=== PATIENT | male | born 1940 | race Caucasian/White ===

== ENCOUNTER 2018-06-17 08:34 | Outpatient (CLI) | payer BC ==
--- NOTE | 2018-06-17 10:29 | BD ---
DEXA BONE DENSITOMETRY: (Dual energy X-ray Absorptiometry) DATE: 06/17/2018. HISTORY: A 78-year-old white male with a history of secondary osteoporosis. Height 70 inches. Weight 160 pounds. FINDINGS: The bone mineral density (BMD) is given in grams per square centimeter (g/cm2): LUMBAR SPINE: BMD(g/cm2) T-score Z-score L1: 1.108 0.3 1.3 L2: 1.108 0.1 1.2 L3: 0.941 -1.5 -0.3 L4: 1.010 -0.7 0.4 Total: 1.040 -0.5 0.6 HIP: Femoral neck: 0.738 -1.4 0.0 Total: 0.835 -1.3 -0.4 IMPRESSION: 1) The mean bone mineral density of the lumbar spine is normal. Fracture risk is not increased. 2) The bone mineral density of the femoral neck is osteopenic. Fracture risk is increased. XIMENA Lovett POS: [facility]
== END 2018-06-17 08:35 | disposition home or self-care (01) ==
LOC: BICMAMMO 08:34
PROVIDERS: ATTEND Family Medicine
DX: Z13.820 Encounter for screening for osteoporosis (principal); M85.88 Other specified disorders of bone density and structure, other site
CPT/HCPCS: 77080

== ENCOUNTER 2019-08-15 13:09 | Outpatient (CLI) | payer BC ==
--- NOTE | 2019-08-15 15:47 | BD ---
DEXA BONE DENSITY STUDY: Date: 08/15/2019 HISTORY: Postmenopausal. FINDINGS: Lumbar Spine: BMD (g/cm2) L1 1.104 T-Score: +0.3 L2 1.069 T-Score: -0.2 L3 0.832 T-Score: -1.6 L4 1.012 T-Score: -0.7 Total 1.027 T-Score: -0.6 Left Femoral Neck: 0.719 T-Score: -1.5 Total Femur: 0.772 T-Score: -1.7 IMPRESSION: 1. Osteopenia of the left femoral neck. 2. Normal bone mineral density of the lumbar spine. POS: [facility]
== END 2019-08-15 13:10 | disposition home or self-care (01) ==
LOC: BICMAMMO 13:09
PROVIDERS: ATTEND Family Medicine
DX: M81.0 Age-related osteoporosis without current pathological fracture (principal); M85.852 Other specified disorders of bone density and structure, left thigh
CPT/HCPCS: 77080

== ENCOUNTER 2022-12-26 05:43 | Observation (INO) | payer MEDICARE, BC ==
[2022-12-22 10:07] VITALS: BMI 21.5
[2022-12-26] MEDS ORDERED: Tranexamic Acid 1,000 MG/10 ML VIAL ONE (06:03)
[2022-12-26] MEDS ORDERED: Sodium Chloride 0.9% 100 ML ONE ×2 (06:03→06:48)
[2022-12-26] MEDS ORDERED: Vancomycin 1 GM/200 ML (FROZEN) BAG ONE (06:04)
[2022-12-26] MEDS ORDERED: Midazolam HCl 2 mg/2 ml Vial ONE (06:43)
[2022-12-26] MEDS ORDERED: fentaNYL 50 mcg/mL 1 mL Vial ONE (06:43)
[2022-12-26] MEDS ORDERED: Bupivacaine PF 0.5% 30 ML VIAL ONE ×2 (06:43→06:48)
[2022-12-26] MEDS ORDERED: CEFAZOLIN 2 GM VIAL ONE (06:48)
[2022-12-26] MEDS ORDERED: Fentanyl 250 MCG/5 ML VIAL ONE (07:08)
[2022-12-26] MEDS ORDERED: fentaNYL 50 mcg/mL 1 mL Vial SLOW IVP PRN ×2 (07:11→07:58)
[2022-12-26] MEDS ORDERED: Acetaminophen 325 MG TAB PO PRN (07:11)
[2022-12-26] MEDS ORDERED: diphenhydrAMINE 25 MG CAP PO PRN (07:11)
[2022-12-26] MEDS ORDERED: HYDROcodone/Acetaminophen 10/325 mg Tablet PO PRN ×4 (07:11→08:00)
[2022-12-26] MEDS ORDERED: Zolpidem Tartrate 5 MG TAB PO PRN ×2 (07:11→08:00)
[2022-12-26] MEDS ORDERED: Promethazine HCl 25 MG/ML VIAL IM PRN ×2 (07:11→08:00)
[2022-12-26] MEDS ORDERED: PROPOFOL 200 MG/20 ML VIAL ONE (07:25)
[2022-12-26] MEDS ORDERED: Lidocaine 1% PF 5 ML VIAL ONE (07:25)
[2022-12-26] MEDS ORDERED: Ondansetron PF 4 MG/2 ML Vial ONE (07:25)
[2022-12-26] MEDS ORDERED: Dexamethasone 20 MG/5 ML VIAL ONE (07:25)
[2022-12-26] MEDS ORDERED: ePHEDrine Sulfate 50 MG/10 ML VIAL ONE (07:25)
[2022-12-26] MEDS ORDERED: Bupivacaine HCl 0.5%/Epinephrine 1:200,000/PF 30 ml Vial ONE (07:25)
[2022-12-26] MEDS ORDERED: Glycopyrrolate 0.2 MG/ML 5 ML SYRINGE ONE (07:25)
[2022-12-26] MEDS ORDERED: PHENYLEPHRINE-NS 100 MCG/ML 10 ML SYRINGE ONE (07:25)
[2022-12-26] MEDS ORDERED: Ondansetron PF 4 MG/2 ML Vial IVP PRN (08:00)
[2022-12-26] MEDS ORDERED: traMADol HCl 50 MG TAB PO PRN ×2 (08:00)
[2022-12-26] MEDS ORDERED: Ropivacaine 0.2% 550 ML 550 ML NERVE BLCK SCH (08:00)
[2022-12-26] MEDS ORDERED: Aspirin 81 mg Enteric Coated Tablet PO SCH (09:00)
[2022-12-26] MEDS ORDERED: fentaNYL PF 100 MCG/2 ML SYRINGE ONE ×2 (09:10→09:32)
[2022-12-26] MEDS ORDERED: HYDROmorphone 0.5 MG/0.5 ML SYRINGE ONE ×3 (09:10→10:48)
[2022-12-26] MEDS: Ondansetron PF 4 MG/2 ML Vial IVP PRN ×2 (13:03→22:36)
[2022-12-26] MEDS: Ketorolac Tromethamine 30 MG/ML VIAL IVP SCH ×3 (13:04→23:54)
[2022-12-26] MEDS: Sodium Chloride 0.9% 1,000 ML IV SCH ×2 (14:29→17:25)
[2022-12-26] MEDS: Aspirin 81 mg Enteric Coated Tablet PO SCH ×2 (14:30→22:28)
[2022-12-26] MEDS: Amlodipine 5 MG TAB PO SCH (14:30)
[2022-12-26] MEDS: Methylcellulose 500 MG TAB PO SCH (14:30)
[2022-12-26] MEDS: Cholecalciferol 1,000 UNITS (25 MCG) TAB PO SCH (14:30)
[2022-12-26] MEDS: Ferrous Gluconate 324 MG TAB PO SCH ×2 (14:30→22:28)
[2022-12-26] MEDS: Ascorbic Acid 500 mg Chewable Tablet PO SCH ×2 (14:30→22:28)
[2022-12-26] MEDS: Multivitamin W/ Minerals 1 TAB PO SCH (14:31)
[2022-12-26] MEDS: Senokot S 8.6-50 MG TAB PO SCH ×2 (14:31→22:30)
[2022-12-26] MEDS: Valsartan 80 MG TAB PO SCH (14:31)
[2022-12-26] MEDS: CEFAZOLIN 2 GM in Sodium Chloride 0.9% 100 ML IVPB SCH ×2 (14:51→22:29)
[2022-12-26] MEDS ORDERED: Calcium Carbonate 600 MG + Vit D TAB PO SCH (21:00)
[2022-12-27] MEDS: Sodium Chloride 0.9% 1,000 ML IV SCH ×2 (05:28→16:57)
[2022-12-27] MEDS: Ketorolac Tromethamine 30 MG/ML VIAL IVP SCH ×2 (05:33→12:21)
[2022-12-27 05:48] LABS: Hemoglobin 8.6 g/dL (14.0-18.0); Mean Corpuscular HGB CONC 32.1 g/dL (32.0-36.0); Mean Corpuscular Hemoglobin 30.5 pg (27.0-31.0); Mean Platelet Volume 9.9 fL (7.4-10.4); Platelet Count 193 10x3/uL (130-400); RBC Distribution Width 14.6 % (11.5-14.5); Red Blood Cell (RBC) Count 2.82 mill/uL (4.70-6.10); White Blood Cell (WBC) Count 8.3 10x3/uL (4.8-10.8)
[2022-12-27] MEDS: Valsartan 80 MG TAB PO SCH (09:06)
[2022-12-27] MEDS: Aspirin 81 mg Enteric Coated Tablet PO SCH (09:07)
[2022-12-27] MEDS: Senokot S 8.6-50 MG TAB PO SCH (09:07)
[2022-12-27] MEDS: Amlodipine 5 MG TAB PO SCH (09:07)
[2022-12-27] MEDS: Ferrous Gluconate 324 MG TAB PO SCH (09:07)
[2022-12-27] MEDS: Cholecalciferol 1,000 UNITS (25 MCG) TAB PO SCH (09:07)
[2022-12-27] MEDS: Multivitamin W/ Minerals 1 TAB PO SCH (09:08)
[2022-12-27] MEDS: Ascorbic Acid 500 mg Chewable Tablet PO SCH (09:08)
[2022-12-27] MEDS: Methylcellulose 500 MG TAB PO SCH (12:21)
[2022-12-27 12:47] VITALS: BP 147/58; TEMP 97.5
[2022-12-27] MEDS ORDERED: Tamsulosin HCl 0.4 MG CAP PO SCH (16:45)
== END 2022-12-27 17:32 | disposition home or self-care (01) ==
LOC: SDC 05:43 → SJJU 12:52
PROVIDERS: ADMIT Orthopaedic Surgery; ATTEND Orthopaedic Surgery
PROC: 0SRC0JZ Replacement of Right Knee Joint with Synthetic Substitute, Open Approach (ICD-10-PCS; principal; 2022-12-26)
DX: M17.0 Bilateral primary osteoarthritis of knee (principal); Z88.2 Allergy status to sulfonamides; Z88.8 Allergy status to other drugs, medicaments and biological substances
CPT/HCPCS: 27447; 73560; 85027; 97110 ×2; 97116 ×2; 97530; A4306; C1776; J3010; J3370; 36415; 51702; 96374; 96375; 96376; G0378; J1100; J1170; J1885; J2250; J2405; J2704; J2795; J3490; S0020

== ENCOUNTER 2023-05-10 13:27 | Outpatient (CLI) | payer MEDICARE, BC ==
[2023-05-10 15:22] LABS: #Eosinphils 0.2 10x3/uL (0.0-0.5); #Monocytes 0.7 10x3/uL (0.0-1.1); #Neutrophils 3.9 10x3/uL (1.5-8.4); %Basophils 0.7 % (0.0-2.0); %Eosinophils 2.7 % (0.0-6.0); %Lymphocytes 17.9 % (18.0-47.0); %Monocytes 11.6 % (0.0-10.0); %Neutrophils 66.8 % (40.0-75.0); Hematocrit 38.7 % (38.8-50.0); Hemoglobin 12.5 g/dL (13.5-17.5); Mean Corpuscular HGB CONC 32.3 g/dL (32.0-36.0); Mean Corpuscular Hemoglobin 29.9 pg (27.0-33.0); Mean Corpuscular Volume 92.6 fl (81.2-95.1); Mean Platelet Volume 10.8 fl (7.4-10.4); Platelet Count 289 10x3/uL (150-450); Red Blood Cell (RBC) Count 4.18 10x6/uL (4.32-5.72); White Blood Cell (WBC) Count 5.9 10x3/uL (3.5-10.5)
[2023-05-10 15:36] LABS: Prothrombin Time 10.3 sec (9.5-12.1)
[2023-05-10 15:45] LABS: Anion Gap 16 mmol/L (10-20); BUN (Urea Nitrogen) 26 mg/dL (8.4-25.7); Calc. Creatinine Clearance 0 mL/min (70-130); Calcium 9.3 mg/dL (7.8-10.44); Carbon Dioxide 25 mmol/L (23-31); Chloride 102 mmol/L (98-107); Estimated GFR 57; Glucose 95 mg/dL (83-110); Potassium 4.7 mmol/L (3.5-5.1); Sodium 138 mmol/L (136-145)
== END 2023-05-10 13:28 | disposition home or self-care (01) ==
LOC: LABBT 13:27
PROVIDERS: ATTEND Orthopaedic Surgery
DX: Z01.818 Encounter for other preprocedural examination (principal); M17.12 Unilateral primary osteoarthritis, left knee
CPT/HCPCS: 80048; 85025; 85610; 87081; 93005; 93010

== ENCOUNTER 2023-05-15 05:35 | Observation (INO) | payer MEDICARE, BC ==
[2023-05-15] MEDS ORDERED: Vancomycin 1 GM/200 ML (FROZEN) BAG ONE (06:03)
[2023-05-15] MEDS ORDERED: Tranexamic Acid 1,000 MG/10 ML VIAL ONE (06:03)
[2023-05-15] MEDS ORDERED: Sodium Chloride 0.9% 100 ML ONE ×2 (06:03→06:50)
[2023-05-15] MEDS ORDERED: fentaNYL 50 mcg/mL 1 mL Vial ONE ×2 (06:14→07:48)
[2023-05-15] MEDS ORDERED: Bupivacaine PF 0.5% 30 ML VIAL ONE ×2 (06:15→06:32)
[2023-05-15] MEDS ORDERED: EPINEPHrine 1 MG/ML VIAL ONE (06:15)
[2023-05-15] MEDS ORDERED: Midazolam HCl 2 mg/2 ml Vial ONE (06:32)
[2023-05-15] MEDS ORDERED: Ondansetron HCl/PF 4 MG/2 ML Vial IVP PRN (06:34)
[2023-05-15] MEDS ORDERED: Promethazine HCl 25 MG/ML VIAL IM PRN ×3 (06:34→07:15)
[2023-05-15] MEDS ORDERED: diphenhydrAMINE 50 MG/ML VIAL ONE (06:41)
[2023-05-15] MEDS ORDERED: Ondansetron PF 4 MG/2 ML Vial ONE (06:41)
[2023-05-15] MEDS ORDERED: Lidocaine 1% PF 5 ML VIAL ONE (06:41)
[2023-05-15] MEDS ORDERED: PROPOFOL 200 MG/20 ML VIAL ONE (06:41)
[2023-05-15] MEDS ORDERED: ePHEDrine Sulfate 50 MG/10 ML VIAL ONE (06:41)
[2023-05-15] MEDS ORDERED: Dexamethasone 20 MG/5 ML VIAL ONE (06:41)
[2023-05-15] MEDS ORDERED: Zolpidem Tartrate 5 MG TAB PO PRN ×2 (06:47→07:15)
[2023-05-15] MEDS ORDERED: Ondansetron PF 4 MG/2 ML Vial IVP PRN ×2 (06:47→07:15)
[2023-05-15] MEDS ORDERED: fentaNYL 50 mcg/mL 1 mL Vial SLOW IVP PRN ×2 (06:47→07:12)
[2023-05-15] MEDS ORDERED: diphenhydrAMINE 25 MG CAP PO PRN (06:47)
[2023-05-15] MEDS ORDERED: Acetaminophen 325 MG TAB PO PRN (06:47)
[2023-05-15] MEDS ORDERED: traMADol HCl 50 MG TAB PO PRN ×4 (06:47→07:15)
[2023-05-15] MEDS ORDERED: CEFAZOLIN 2 GM VIAL ONE (06:50)
[2023-05-15] MEDS ORDERED: Ketorolac Tromethamine 30 MG (1 mL) VIAL IVP PRN (07:15)
[2023-05-15] MEDS ORDERED: HYDROcodone/Acetaminophen 10/325 mg Tablet PO PRN ×2 (07:15)
[2023-05-15] MEDS ORDERED: Ropivacaine 0.2% 550 ML 550 ML NERVE BLCK SCH (07:15)
[2023-05-15] MEDS ORDERED: MV MIN PO SCH (09:00)
[2023-05-15] MEDS ORDERED: Non-Formulary Item 1 EACH (Hydrochlorothiazide [Hydrochlorothiazide] 12.5 MG Capsule) PO SCH (09:00)
[2023-05-15] MEDS ORDERED: [UNRECOGNIZED DRUG - OTHER] SL SCH (09:00)
[2023-05-15] MEDS ORDERED: Aspirin 81 mg Enteric Coated Tablet PO SCH (09:00)
[2023-05-15] MEDS ORDERED: VALSARTAN PO SCH (09:00)
[2023-05-15] MEDS ORDERED: [UNRECOGNIZED DRUG - OTHER] PO SCH (09:00)
[2023-05-15] MEDS ORDERED: LUTEIN PO SCH (09:00)
[2023-05-15] MEDS ORDERED: CYANOCOBALAMIN 3000 MCG SL SCH (09:00)
[2023-05-15] MEDS ORDERED: FOLIC PO SCH (09:00)
[2023-05-15] MEDS ORDERED: [UNRECOGNIZED DRUG - OTHER] PO SCH (09:00)
[2023-05-15] MEDS ORDERED: K1 PO SCH (09:00)
[2023-05-15] MEDS ORDERED: LYCOPEN PO SCH (09:00)
[2023-05-15] MEDS ORDERED: AMLODIPINE BESYLATE PO SCH (09:00)
[2023-05-15] MEDS ORDERED: fentaNYL PF 100 MCG/2 ML SYRINGE ONE (09:06)
[2023-05-15] MEDS: Amlodipine 5 MG TAB PO SCH (11:15)
[2023-05-15] MEDS: Sodium Chloride 0.9% 1,000 ML IV SCH ×2 (11:15→14:03)
[2023-05-15] MEDS: Hydrochlorothiazide 25 MG TAB PO SCH (11:16)
[2023-05-15] MEDS: Aspirin 81 mg Enteric Coated Tablet PO SCH ×2 (11:16→19:32)
[2023-05-15] MEDS: Ferrous Gluconate 324 MG TAB PO SCH ×2 (11:16→19:32)
[2023-05-15] MEDS: Cyanocobalamin (Vitamin B-12) 1,000 MCG TAB PO SCH (11:16)
[2023-05-15] MEDS: Senokot S 8.6-50 MG TAB PO SCH ×2 (11:17→19:33)
[2023-05-15] MEDS: Methylcellulose 500 MG TAB PO SCH (11:17)
[2023-05-15] MEDS: Valsartan 80 MG TAB PO SCH (11:17)
[2023-05-15] MEDS: Multivitamin W/ Minerals 1 TAB PO SCH (11:17)
[2023-05-15] MEDS: CEFAZOLIN 2 GM in Sodium Chloride 0.9% 100 ML IVPB SCH ×2 (13:50→21:16)
[2023-05-15] MEDS ORDERED: Ketorolac Tromethamine 30 MG (1 mL) VIAL IVP SCH (14:00)
[2023-05-15 15:42] VITALS: BMI 22.2
[2023-05-16] MEDS: Sodium Chloride 0.9% 1,000 ML IV SCH ×2 (03:22→08:03)
[2023-05-16 07:04] LABS: Hematocrit 29.4 % (42.0-52.0); Hemoglobin 9.6 g/dL (14.0-18.0); Mean Corpuscular HGB CONC 32.7 g/dL (32.0-36.0); Mean Corpuscular Hemoglobin 30.3 pg (27.0-31.0); Mean Corpuscular Volume 92.7 fl (78.0-98.0); Mean Platelet Volume 10.6 fL (7.4-10.4); Platelet Count 195 10x3/uL (130-400); RBC Distribution Width 14.1 % (11.5-14.5); Red Blood Cell (RBC) Count 3.17 mill/uL (4.70-6.10); White Blood Cell (WBC) Count 11.2 10x3/uL (4.8-10.8)
[2023-05-16] MEDS: Cyanocobalamin (Vitamin B-12) 1,000 MCG TAB PO SCH (08:01)
[2023-05-16] MEDS: Aspirin 81 mg Enteric Coated Tablet PO SCH (08:01)
[2023-05-16] MEDS: Amlodipine 5 MG TAB PO SCH (08:01)
[2023-05-16] MEDS: Multivitamin W/ Minerals 1 TAB PO SCH (08:02)
[2023-05-16] MEDS: Hydrochlorothiazide 25 MG TAB PO SCH (08:02)
[2023-05-16] MEDS: Ferrous Gluconate 324 MG TAB PO SCH (08:02)
[2023-05-16] MEDS: Methylcellulose 500 MG TAB PO SCH (08:02)
[2023-05-16] MEDS: Senokot S 8.6-50 MG TAB PO SCH (08:03)
[2023-05-16] MEDS: Valsartan 80 MG TAB PO SCH (08:03)
[2023-05-16 08:08] VITALS: BP 148/105; TEMP 98
== END 2023-05-16 09:39 | disposition home or self-care (01) ==
LOC: SDC 05:35 → SURG B 10:35 → SDC 11:22
PROVIDERS: ADMIT Orthopaedic Surgery; ATTEND Orthopaedic Surgery
PROC: 0SRD0JZ Replacement of Left Knee Joint with Synthetic Substitute, Open Approach (ICD-10-PCS; principal; 2023-05-15)
DX: M17.12 Unilateral primary osteoarthritis, left knee (principal); Z88.2 Allergy status to sulfonamides; Z88.8 Allergy status to other drugs, medicaments and biological substances
CPT/HCPCS: 27447; 73560; 85027; 97110; 97116 ×2; 97530; A4306; C1776; J0171; J3010; J3370; 36415; J1100; J1200; J2250; J2405; J2704; J2795; J3490; J7050; S0020

== ENCOUNTER 2024-05-14 12:19 | Emergency (ER) | payer MEDICARE, BC ==
[2024-05-14 14:08] LABS: #Basophils 0.04 10x3/uL (0.0-0.2); %Basophils 0.7 % (0.0-1.0); %Eosinophils 1.1 % (0.0-10.0); %Lymphocytes 12.3 % (21.0-51.0); %Monocytes 10.7 % (0.0-10.0); %Neutrophils 74.8 % (42.0-75.0); Hematocrit 36.9 % (42.0-52.0); Hemoglobin 12.1 g/dL (14.0-18.0); Mean Corpuscular HGB CONC 32.8 g/dL (32.0-36.0); Mean Corpuscular Hemoglobin 30.3 pg (27.0-31.0); Mean Corpuscular Volume 92.3 fL (78.0-98.0); Mean Platelet Volume 10.2 fL (7.4-10.4); Platelet Count 241 10x3/uL (130-400)
[2024-05-14 14:19] LABS: ALT (SGPT) 14 U/L (8-55); AST (SGOT) 21 U/L (5-34); Albumin 3.3 g/dL (3.4-4.8); Alkaline Phosphatase 73 U/L (40-110); Anion Gap 13 mmol/L (10-20); BUN (Urea Nitrogen) 26 mg/dL (8.4-25.7); Bilirubin, Total 0.7 mg/dL (0.2-1.2); Calc. Creatinine Clearance 0 mL/min (70-130); Calcium 8.6 mg/dL (7.8-10.44); Carbon Dioxide 25 mmol/L (23-31); Chloride 103 mmol/L (98-107); Estimated GFR 49; Glucose 123 mg/dL (83-110); Potassium 3.8 mmol/L (3.5-5.1); Protein, Total 6.3 g/dL (5.8-8.1); Sodium 137 mmol/L (136-145)
== END 2024-05-14 15:43 | disposition home or self-care (01) ==
LOC: ERS 12:19
DX: L03.213 Periorbital cellulitis (principal); I10 Essential (primary) hypertension; R54 Age-related physical debility
CPT/HCPCS: 36416; 70487; 80053; 85025

== ENCOUNTER 2025-06-16 12:18 | Outpatient (CLI) | payer MEDICARE | END 2025-06-16 12:19 | disposition home or self-care (01) | LOC: BICMAMMO 12:18 | PROVIDERS: ATTEND Family Medicine | DX: M81.0 Age-related osteoporosis without current pathological fracture (principal); M85.89 Other specified disorders of bone density and structure, multiple sites | CPT/HCPCS: 77080 ==